=== PATIENT | female | born 1955 | race African-American/Black ===

== ENCOUNTER → 2020-10-21 12:13 | Outpatient (CLI) | payer OTHER, MEDICARE, SELFPAY ==
--- NOTE | 2020-10-21 12:20 | US_ITS ---
PROCEDURE: US LIVER CLINICAL INDICATION: ELEVATED LFTS/URTICARIA COMPARISON: CT CT ABDOMEN WO/W CON from 10/21/2020 FINDINGS: PANCREAS: Pancreas is not well delineated due to overlying bowel gas. CT or MRI without and with contrast with pancreatic protocol may provide further evaluation if clinically desired. LIVER: No focal liver lesions demonstrated. Homogeneous echogenicity. No intrahepatic biliary ductal dilatation evident. There is appropriate direction of blood flow within a non dilated portal vein RIGHT KIDNEY: There are 2 small right renal cyst each measuring 1 cm.. No hydronephrosis. GALLBLADDER: There has been a prior cholecystectomy. The common bile duct is mildly prominent at 9 mm IMPRESSION: Status post cholecystectomy. Mild prominence of the common bile duct. Pancreas is not well delineated and is described more thoroughly in the subsequent abdomen CT report. Dictated by: Hussein Weldon MD 10/21/2020 14:39 Hussein Weldon MD in [place] 10/21/2020 14:39
--- NOTE | 2020-10-21 12:20 | CT_ITS ---
PROCEDURE: CT ABDOMEN WO/W CON CLINICAL HISTORY: elevated lft's Elevated LFTs. Pruritus COMPARISON: US US LIVER from 10/21/2020 TECHNIQUE: Helical images obtained without and with contrast with dynamic post enhanced imaging. Axial images obtained with sagittal and coronal reformats. All CT scans at the facility use one or more dose reduction, viz: automated exposure control, ma/kV adjustment per patient size (including targeted exams where dose is matched to indication, i.e. head), or iterative reconstruction technique. FINDINGS: Lung bases are clear. Coronary artery calcifications are noted. There has been a prior cholecystectomy. There is both intra and extra hepatic biliary ductal dilatation. Common bile duct proximally has an unusual appearance with small curvilinear densities within the common bile duct. This could be either related to a beaded appearance of the common bile duct or common duct stones. This makes true measurements somewhat difficult to obtain. Recommend MRCP for further evaluation. There is a hypodense somewhat ill-defined mass within the pancreatic head . This lesion measures 4 x 3 x 3 cm with a central coarse calcification. This does appear to be causing obstruction of the distal aspect of the common bile duct. This lesion is located along the anterior aspect of the common bile duct within the head of the pancreas. The common bile duct is dilated proximal to this lesion. This is highly suspicious for pancreatic neoplasm. Cannot adequately separate this lesion from the descending portion of the duodenum suggesting duodenal wall involvement. The pancreatic duct does not appear dilated. There is a 16 mm isodense lesion of the right kidney laterally. This does demonstrate some heterogeneous contrast enhancement on both the of mediate and portal venous phase. This is suspicious for small renal neoplasm. A small right renal cyst is present anteriorly at 1 cm. There are couple of small hyperdense nodules of the right kidney the largest superiorly and medially measuring 8 mm. No evidence of aortic aneurysm. No intestinal obstruction or free air. There has been a prior left nephrectomy. Unremarkable appendix. IMPRESSION: 1. 4 x 3 x 3 cm mass in the pancreatic head highly suspicious for neoplasm. Obstruction noted of the common common bile duct. Focal pancreatitis would be included in the differential diagnosis although felt to be less likely. MRI of the abdomen with MRCP and ERCP suggested for further evaluation. 2. Solid-appearing enhancing right renal nodule suspicious for neoplasm measuring 16 mm. With right-sided renal cyst. This may be better evaluated with MRI as well. 3. Prior left nephrectomy Dictated by: Hussein Weldon MD 10/21/2020 15:31 Hussein Weldon MD in [place] 10/21/2020 15:31
[2020-10-21 13:36] LABS: Chloride 105 mmol/L (98-107); Potassium 4.4 mmoL/L (3.5-5.1); Sodium 139 mmol/L (136-145)
[2020-10-21 13:38] LABS: Amylase 71 U/L (30-110); Blood Urea Nitrogen 17 mg/dl (7-17)
[2020-10-21 13:39] LABS: Alanine Aminotransferase 240 U/L (12-78); Albumin Level 5.1 g/dl (3.5-5.0); Alkaline Phosphatase 369 U/L (38-126); Anion Gap 17.4 mEq/L (5-15); Aspartate Amino Transferase 110 U/L (14-36); Bilirubin,Indirect 0.7 mg/dL (0.0-0.9); Bilirubin,Total 1.7 mg/dl (0.2-1.3); Bilirubin,Unconjugated 0.7 mg/dL (0.0-1.1); Calcium 10.9 mg/dl (8.4-10.2); Carbon Dioxide 21 mmol/L (22.0-30.0); Estimated Glomerular Filt Rate 63 ml/min (>60); GFR (African American) 76 ML/MIN (>60); Glucose 267 mg/dl (74-100); Lipase 403 U/L (23-300); Total Protein,Serum 8.7 g/dl (6.3-8.2)
[2020-10-21 14:17] LABS: Gamma Glutamyl Transpeptidase 718 U/L (12-43)
--- NOTE | 2020-10-21 15:35 | MR_ITS ---
PROCEDURE INFORMATION: Exam: MR Abdomen Without and With Contrast Exam date and time: 10/21/2020 3:35 PM Age: 65 years old Clinical indication: Abnormal findings; Abnormal radiologic finding of the abdomen; Radiologic exam and body structure: CT abd/pelvis; Prior surgery; Surgery date: 6+ months; Surgery type: Gall bladder; Patient HX: Elevated liver enzymes. Abnormal CT scan 10-21-20. Prior HX cholecystectomy; Additional info: Pancreatic mass on CT abdomen TECHNIQUE: Imaging protocol: MR of the abdomen without and with intravenous contrast. Contrast material: PROHANCE; Contrast volume: 15 ml; Contrast route: IV; COMPARISON: CT ABDOMEN WO/W CON 10/21/2020 1:48 PM FINDINGS: Liver: No mass. Gallbladder and bile ducts: Gallbladder surgically absent. Pancreas: Mild intra and extrahepatic biliary dilation, with abrupt narrowing at the level of the pancreatic head, likely secondary to pancreatic head mass. Mild pancreatic duct dilation in the region of the pancreatic body, likely secondary to obstructive pancreatic head mass. 3.7 x 3.0 x 3.0 cm enhancing mass within the anterior pancreatic head, most compatible with primary pancreatic adenocarcinoma. Spleen: Unremarkable. No splenomegaly. Adrenal glands: Unremarkable. No mass. Kidneys and ureters: Multiple simple left renal cysts. Left kidney is surgically absent. 2.1 x 1.4 x 1.6 cm partially solid and cystic slightly exophytic mass arising from the periphery of the right renal midpole (series 26, image 27), corresponding to the solid-appearing lesion on comparison CT, likely primary renal cell carcinoma. Stomach and bowel: Visualized stomach and intestines are unremarkable. Intraperitoneal space: No free fluid. Arteries: No abdominal aortic aneurysm. Bones/joints: Unremarkable. Soft tissues: Unremarkable. IMPRESSION: 1. Mild intra and extrahepatic biliary dilation, with abrupt narrowing at the level of the pancreatic head, likely secondary to pancreatic head mass. 2. Mild pancreatic duct dilation in the region of the pancreatic body, likely secondary to obstructive pancreatic head mass. 3. 3.7 x 3.0 x 3.0 cm enhancing mass within the anterior pancreatic head, most compatible with primary pancreatic adenocarcinoma. 4. 2.1 x 1.4 x 1.6 cm partially solid and cystic slightly exophytic mass arising from the periphery of the right renal midpole (series 26, image 27), corresponding to the solid-appearing lesion on comparison CT, likely primary renal cell carcinoma. COMMENTS: Consistent with the [employer]'s Incidental Findings Committee white paper (J Am Ellis Radiol 2018): Any incidental renal lesion less than 1 cm or classified as too small to characterize, or any incidental cystic renal lesion characterized as simple-appearing, is likely benign. No follow-up imaging is recommended for these lesions per consensus recommendations based on imaging criteria.
== END ==
PROVIDERS: PCP Nurse Practitioner Family; Visit Provider Internal Medicine
DX: Z01.812 Encounter for preprocedural laboratory examination (principal); Z20.822 Contact with and (suspected) exposure to COVID-19; K86.89 Other specified diseases of pancreas; R63.4 Abnormal weight loss; R79.89 Other specified abnormal findings of blood chemistry; E11.9 Type 2 diabetes mellitus without complications; E78.5 Hyperlipidemia, unspecified; I10 Essential (primary) hypertension; L50.9 Urticaria, unspecified; Z90.5 Acquired absence of kidney
CPT/HCPCS: 36415; 74170; 74183; 76376; 76705; 80048; 80076; 82150; 82977; 83690; A9576; Q9967; U0003

== ENCOUNTER → 2020-10-23 10:03 | Outpatient (CLI) | payer OTHER, MEDICARE, SELFPAY ==
--- NOTE | 2020-10-23 | CA_ITS ---
APPROVED REPORT EXAM: Comprehensive 2D, Doppler, and color-flow Echocardiogram Coagulating Operator: Meseret Juárez RT(R) Ht: 5 ft 8 in Wt: 158lbs BSA: 1.85 BP: 144/91 mmHg Indications: SOA, CP, HTN, DM, SOB, ABN EKG Echo Enhancing Agent Indication: Rule Out Septal Defect Agent(s) / Amount(s) Used: Agitated Saline 20 cc 2D Dimensions LVOT 1.96 cm (M/F) 1.5-2.5 LVEF (Oneal's) 51.50 % F: 54 - 74 LV Volume 78.70 mL F: 46 - 106 LV Volume Index 42.54 mL/m2 F: 29 - 61 LA Volume 18.30 mL LA Volume Index 9.89 mL/m2 (M/F) 16-34 M-Mode Dimensions RVDd 1.72 cm (0.9-2.6) LA Diam 2.33 cm (1.9-4.0) LVDd 4.69 cm (3.5-5.7) Ao Diam 2.44 cm (2.0-3.7) LVDs 3.65 cm (3.5-5.7) IVSd 1.00 cm (0.6-1.1) PWd 0.75 cm (0.6-1.1) EF (Teich) 44.70% FS 22.20% EDV (Teich) 101.90 mL TAPSE 2.04 (<1.7) ESV (Teich) 56.30 mL LV Diastology E Decel Time 230.00 (160-240 msec) E/A Ratio 0.6 MED E' 4.70 (< 7 cm/sec) E'/MED E' Ratio 12.30 (>14) LAT E' 8.80 (<10 cm/sec) E/LAT E' Ratio 6.57 (>14) Aortic Valve AI PHT 578.00 ms Mitral Valve MV E Max Julio. 58.00 (40-130 cm/s) MV A Velocity 90.00 (40-130 cm/s) E/A Ratio 0.64 MV Decel. Time 230.00 (160-240 ms) MV PHT 67.00 ms Tricuspid Valve TR P. Velocity 254.00 cm/s RAP Estimate 10.00 mmHg RVSP 35.70 mmHg Left Ventricle Left atrium is mildly enlarged, left ventricle is normal size, mild concentric left ventricular hypertrophy, visually estimated ejection fraction 55% with no regional wall motion abnormality, grade 1 diastolic dysfunction seen without tissue Doppler evidence of raise left atrial pressure. Right Ventricle Right atrium and right ventricle are normal size and contractility. Aortic Valve Aortic valve is thickened and calcified without Doppler evidence of aortic stenosis, there is mild aortic insufficiency. Mitral Valve Mitral valve leaflets are minimally thickened, there is mild mitral regurgitation. Tricuspid Valve Tricuspid valve grossly normal, there is mild tricuspid regurgitation, tricuspid regurgitation jet velocity is inadequate for calculation of the right ventricular systolic pressure. Pulmonic Valve Pulmonic valve is poorly visualized. Great Vessels Aortic root is normal size. Pericardium No significant pericardial effusion noted. Conclusion 1. Mildly enlarged left atrium, normal left ventricular size, mild concentric left ventricular hypertrophy, visually estimated ejection fraction 55% with no regional wall motion abnormality, grade 1 diastolic dysfunction seen without tissue Doppler evidence of raise left atrial pressure. 2. Mild aortic, mild mitral and tricuspid regurgitation. 3. No significant pericardial effusion noted. Electronically signed by : Lamonte Lowery, 10/23/2020 14:17:52
== END ==
PROVIDERS: PCP Nurse Practitioner Family; Visit Provider Internal Medicine
DX: R06.02 Shortness of breath (principal)
CPT/HCPCS: 93306

== ENCOUNTER 2020-10-23 11:39 | Day surgery (SDC) | payer OTHER, MEDICARE, SELFPAY ==
[2020-10-22 14:43] VITALS: BMI 24.0
[2020-10-23] VITALS (8 sets, daily range): BP systolic 102–142; BP diastolic 58–76; PULSE 78–87; RESP 16–18; TEMP 36.3–36.9; O2SAT 98–100
[2020-10-23 13:03] LABS: POC Glucose,Bedside 221 (70-110)
--- NOTE | 2020-10-23 14:25 | HMH.PROC ---
[facility] Procedure Note Procedure Note:: Aborted ERCP with upper Endoscopy Procedure Report: Esophagogastroduodenoscopy with cold biopsies Endoscopost: Bhavesh Payne II, MD Referring Physician: Jamie Delgado MD/Tata Mckeon Date of Procedure: October 23, 2020 Equipment: Olympus GIF 190 standard upper endoscope Sedation: MAC sedation Indications: Mrs. Bess is a 65-year-old female that had a recent CT scan and MRI that did show a 4 x 3 x 3 cm mass in the pancreatic head highly suspicious for neoplasm. There was obstruction noted of the common bile duct with focal pancreatitis. There was also a solid-appearing enhancing right renal nodule suspicious for neoplasm. The patient has had prior cholecystectomy. The MRCP did show obstruction of the bile duct. The patient's labs showed ALT 240, alkaline phosphatase 369 and lipase 403. The total bilirubin was 1.7. The patient did have some darkened urine. I believe that she has been taking some ibuprofen. Procedure: Prior to the procedure, a history and physical exam was performed, and patient's medications and allergies were reviewed. The risks, benefits and alternatives of the sedation and procedure were discussed with the patient. All questions were answered and informed consent was obtained. The patient was brought to the procedure room. Patient identification and proposed procedure were verified by the physician and the nurse. The patient was placed in a left lateral decubitus position and the scope was passed under direct vision. Throughout the procedure, the patient's blood pressure, pulse, and oxygen saturations were monitored continuously. The upper GI endoscopy was accomplished without difficulty. The patient tolerated the procedure well. Findings: The scope was passed directly into the upper esophagus and advanced to the duodenal bulb. This was initially done with the side-viewing scope but there was a large edematous duodenal ulcer with margins and significant depth in the first portion of the duodenum with some stenosis at this portion. Because it was deemed more difficult and risky to pass the side-viewing endoscope, the forward-viewing scope was then utilized and advanced beyond this duodenal ulcer with stenosis at first portion. This was deepened marginated and along the medial section extending down towards the ampulla. Cold biopsies were obtained. The ampulla was effaced because of this edema. After biopsies were taken the procedure was aborted. Impression: 1. 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 This does extend into the duodenum with partial obstruction of the bile duct. Certainly benign lesions can sometimes fistulized into the biliary system and create choledochoduodenal fistulous. I am going to obtain CEA, CA 19-9 and follow-up the biopsies. I would stop ibuprofen and begin omeprazole and misoprostol. I will discuss the case with pancreaticobiliary surgery Sayed MD Deuce oncologic surgery/pancreaticobiliary surgery at [facility].
[2020-10-23 15:18] LABS: Alanine Aminotransferase 208 U/L (12-78); Albumin Level 4.2 g/dl (3.5-5.0); Alkaline Phosphatase 364 U/L (38-126); Aspartate Amino Transferase 78 U/L (14-36); Bilirubin,Direct 0.9 mg/dl (0.0-0.4); Bilirubin,Indirect 0.5 mg/dL (0.0-0.9); Bilirubin,Total 1.4 mg/dl (0.2-1.3); Bilirubin,Unconjugated 0.4 mg/dL (0.0-1.1)
--- NOTE | 2020-10-24 09:29 | P.PN_ITS ---
[facility] Anesthesia Checklist - Structural Data Admitted From: Home Planned Operative Procedure/s: ercp Consent for Planned Operative Procedure(s) Verified: Yes - Airway Assessment C-Spine Mobility Assessed: Yes TMJ Mobility Assessed: Yes Dentition: Good Dentition - Neurological Assessment Level of Consciousness: Awake, Alert, Appropriate - Anesthesia Plan Anesthesia Risk discussed: Yes Anesthesia Plan: Verified ASA Class: III Anesthesia Type: MAC [facility] History I have reviewed the patient's past medical history: Yes Medical History: Reports:: Diabetes Mellitus Type 2, Hypertension Denies:: Cancer, Diabetes Mellitus Type 1, Internal Pacemaker, MRSA, Seizures *Have you ever received a pneumonia vaccine?: No *Have you received a flu vaccine this season?: No Other Medical History: Reports: Arthritis Anesthesia experience/problems:: none Other Surgeries: Yes: No Previous Surgery, Colonoscopy. No: Pacemaker Amputation: No Fractures: No - *Social History Smoking Status: Never smoker Alcohol Intake: never Substance Use Type: denies use *Occupational Status:: employed Housing: house *Travel in the last 8 weeks: None Family Hx:: Cancer, Hypertension
[2020-10-25 09:08] LABS: CA 19-9 59 U/mL (0-35)
[2020-10-25 09:09] LABS: CEA 9.4 ng/mL (0.0-4.7)
== END 2020-10-23 15:40 | disposition home or self-care (01) ==
PROVIDERS: PCP Nurse Practitioner Family; Visit Provider Internal Medicine Gastroenterology
PROC: (CPT 43239; principal; 2020-10-23 13:00)
DX: K29.80 Duodenitis without bleeding (principal); K26.9 Duodenal ulcer, unspecified as acute or chronic, without hemorrhage or perforation; K83.1 Obstruction of bile duct; E11.9 Type 2 diabetes mellitus without complications; I10 Essential (primary) hypertension; M19.90 Unspecified osteoarthritis, unspecified site; Z80.9 Family history of malignant neoplasm, unspecified; Z82.49 Family history of ischemic heart disease and other diseases of the circulatory system
CPT/HCPCS: 43239; 80076; 82378; 82962; 86316

== ENCOUNTER → 2020-11-02 10:58 | Outpatient (CLI) | payer OTHER, SELFPAY ==
--- NOTE | 2020-11-02 | CA_ITS ---
APPROVED REPORT Exam: Pharmacologic Technologist: Bri Rvias, Ht: 5 ft 6 in Wt: 153 lbs BSA: 1.78 m2 HR: 62 bpm BP: 157/80 mmHg Medical History Medications: Vitamin C,,,,, Xanax,,,,, Vitamin D3,,,,, Losartan,,,,, Glimepiride,,,,, Ibuprofen,,,,, DApagliflozin,,,,, SeMaglutide,,,,, Zolpiden,,,,, Stress Test Details Test: LEXISCAN HR Resting HR: 73 bpm Max Heart Rate (APMHR): 154.211594 bpm Max HR Achieved: 99 bpm Target HR (85% APMHR): 130.378073 bpm % of APMHR: 64.29 Recovery HR: 81 bpm BP Resting BP: 157/80 mmHg Max BP: 157/80 mmHg Recovery BP: 154.0/77.0 mmHg ECG Clinical Exercise duration: 04:10 min Highest Stage Achieved: Exercise capacity: 1.0 METs Stress ECG Conclusion Symptoms: No Chest pain. Mild SOA and nausea Arrhythmias/Ectopy: None ST-T Changes: <1.[address] segment changes Test Summary REST . . . . . . . Resting REST 06:44 . . 73 . 157/ 80 . . Stage 1 . . . . . . . Cardiolite injected Stage 1 01:00 . . 93 . . . . Stage 2 01:00 . . 97 . 150/ 76 . . Stage 3 01:00 . . 95 . . . . Stage 4 01:00 . . 94 . 151/ 81 . . Stage 4 01:10 . . 93 . 149/ 83 . Stop exercise at 04:10 RECOVERY 01:00 . . 91 . . . . RECOVERY 02:00 . . 82 . 153/ 80 . . RECOVERY 03:00 . . 84 . 154/ 77 . . RECOVERY 04:00 . . 0 . 154/ 77 . . RECOVERY 05:00 . . 0 . 154/ 77 . . RECOVERY 05:49 . . 0 . 154/ 77 . . Electronically signed by : Lamonte Lowery, 11/02/2020 14:37:53
--- NOTE | 2020-11-02 11:06 | NM_ITS ---
APPROVED REPORT Exam: Nuclear Stress Test Indication: Abnormal EKG, SOB, Fatigue, HTN, DM Patient Location: Outpatient Stress Tech: Bri Rivas [place] Tech:Eufemia Rodriguez, ARRT, RT (R)(N) Ht: 5 ft 8 in Wt: 158 lbs Bra Size: C HR: 62 bpm BP: 157/80 mmHg BSA: 1.85 m2 BMI: 24.0 History: Abnormal EKG, SOB, Fatigue, HTN, DM Procedure: Patient received a 0.4 mg of intravenous Lexiscan, resting heart rate 62 bpm, resting blood pressure 157/80 mmHg, with Lexiscan maximum heart rate achived was 97 bpm which is Less than 85 % of the maximum predicted heart rate and blood pressure was 150/76 mmHg. With Lexiscan, patient denied any complaint of chest pain. Electrocardiogram Resting electrocardiogram shows sinus rhythm, with Lexiscan there is less than 1.[address] segment depression noted from the baseline EKG. The EKG portion of the Lexiscan is nondiagnostic. Cardiac Stress and Resting SPECT Images: Cardiac Stress and Resting SPECT images were obtained using technetium 99m Myoview 32.0 mCi stress and 10.45 mCi at rest. Gated SPECT for analysis of segmental wall motion and calculation of the ejection fraction also done. Prone images were also obtained. Cardiac stress and resting SPECT images show uniform myocardial activity without segmental perfusion abnormality, computer derived ejection fraction is 48% with no regional wall motion abnormality, right ventricle is normal size and contractility. Conclusion: 1. The EKG portion of the Lexiscan is nondiagnostic. 2. No scintigraphic evidence of reversible ischemia seen, computer derived ejection fraction is 48% with no regional wall motion abnormality, right ventricle is normal size and contractility. 3. Normal Lexiscan Myoview study. Electronically signed by : Lamonte Lowery, 11/02/2020 19:06:39
--- NOTE | 2020-11-02 13:21 | HMH.ITSHM ---
Current Home Medications as stated by this patient Jony Bess or customer response representative. []ZOLPIDEM SEMAGLUTIDE LOSARTAN IBUPROFEN GLIMEPIRIDE DAPAGLIFLOZIN VITAMIN D3 VITAMIN C ALPRAZOLAM OMEGA 3 HYALURONATE
== END ==
PROVIDERS: PCP Nurse Practitioner Family; Visit Provider Internal Medicine
DX: R07.9 Chest pain, unspecified (principal); E11.9 Type 2 diabetes mellitus without complications; Z79.84 Long term (current) use of oral hypoglycemic drugs
CPT/HCPCS: 78452; 93017; A9502; J2785